=== PATIENT | female | born 1970 | race Two or more races ===

== ENCOUNTER 2020-05-25 22:17 | Emergency (ER) | payer MEDICAID, OTHER ==
[~2020-05-25] VITALS: Ht 154.9 cm; Wt 63.0 kg
[2020-05-26] MEDS ORDERED: MORPHINE SULF INJ 2 MG/ML SYRINGE 1ML IM ONE
[2020-05-26] MEDS ORDERED: ONDANSETRON ODT 4 MG TAB PO ONE
[2020-05-26] MEDS ORDERED: HYDROmorphone HCL 2 MG/ML VL IV ONE (00:45)
[2020-05-26 03:58] VITALS: BP 133/77
== END 2020-05-26 04:08 | disposition short-term general hospital (02) ==
LOC: ER 22:17
DX: S82.141A Displaced bicondylar fracture of right tibia, initial encounter for closed fracture (principal); S82.492A Other fracture of shaft of left fibula, initial encounter for closed fracture; S82.142A Displaced bicondylar fracture of left tibia, initial encounter for closed fracture; E11.9 Type 2 diabetes mellitus without complications; W17.89XA Other fall from one level to another, initial encounter; Y93.68 Activity, volleyball (beach) (court); Y92.89 Other specified places as the place of occurrence of the external cause; Y99.8 Other external cause status
CPT/HCPCS: 29505; 73562; 96374; 99285; J1170; Q0162

== ENCOUNTER 2022-07-16 03:06 | Emergency (ER) | payer MEDICAID ==
[~2022-07-16] VITALS: Ht 154.9 cm; Wt 63.2 kg
[2022-07-16] MEDS ORDERED: ACE3T PO (07:25)
[2022-07-16] MEDS ORDERED: ONDANSETRON ODT 4 MG TAB PO ONE (07:30)
[2022-07-16] MEDS ORDERED: HYDROcodone-ACET 5/325MG TAB PO ONE (07:30)
[2022-07-16 07:32] VITALS: BP 147/78
== END 2022-07-16 08:16 | disposition home or self-care (01) ==
LOC: ER 03:06
DX: S80.01XA Contusion of right knee, initial encounter (principal); E11.9 Type 2 diabetes mellitus without complications; Z87.81 Personal history of (healed) traumatic fracture; Z79.899 Other long term (current) drug therapy; X58.XXXA Exposure to other specified factors, initial encounter; Y93.89 Activity, other specified; Y92.89 Other specified places as the place of occurrence of the external cause; Y99.8 Other external cause status
CPT/HCPCS: 29505; 73562; 99283; Q0162